=== PATIENT | female | born 1970 | race African-American/Black ===

== ENCOUNTER 2020-09-22 18:42 | Emergency (ER) | payer MEDICAID ==
[~2020-09-22] VITALS: Ht 172.7 cm; Wt 80.0 kg
[2020-09-22 18:43] VITALS: BP 135/90
[2020-09-22] MEDS ORDERED: ACETAMINOPHEN 325MG TABLET PO ONE (20:15)
[2020-09-22] MEDS ORDERED: MORPHINE SULFATE 4 MG/ML CPJ (NOT FOR IM USE) IV ONE (20:30)
[2020-09-22] MEDS ORDERED: ONDANSETRON 4MG ODT PO ONE (20:30)
== END 2020-09-22 20:55 | disposition left against medical advice (07) ==
LOC: ER 18:42
DX: M54.6 Pain in thoracic spine (principal); V86.69XA Passenger of other special all-terrain or other off-road motor vehicle injured in nontraffic accident, initial encounter; Y93.89 Activity, other specified; Y92.410 Unspecified street and highway as the place of occurrence of the external cause; I10 Essential (primary) hypertension; E11.9 Type 2 diabetes mellitus without complications; D57.1 Sickle-cell disease without crisis
CPT/HCPCS: 99283; J2270; Q0162